=== PATIENT | male | born 1980 | race Caucasian/White ===

== ENCOUNTER → 2021-10-16 | Outpatient (REF) | payer BC, OTHER | LOC: M SFHCRHEU 10:35 | PROVIDERS: ATTEND Internal Medicine | DX: M25.50 Pain in unspecified joint (principal); M79.10 Myalgia, unspecified site ==

== ENCOUNTER → 2021-10-16 | Outpatient (CLI) | payer BC, OTHER | LOC: M WUC 11:18 | PROVIDERS: ATTEND Internal Medicine | DX: M75.81 Other shoulder lesions, right shoulder (principal) ==

== ENCOUNTER → 2022-01-24 | Outpatient (REF) | payer OTHER ==
[2022-01-24 13:21] LABS: CALCIUM LEVEL 10.2 MG/DL (8.5-10.1); MAGNESIUM LEVEL 2.4 MG/DL (1.8-2.4)
[2022-01-24 13:40] LABS: TOTAL 25(OH) VITAMIN D 28.7 NG/ML (30.0-100.0)
[2022-01-24 13:42] LABS: PTH INTACT 50.3 PG/ML (18.5-88.0)
== END ==
LOC: M SFHCRHEU 11:29
PROVIDERS: ATTEND Internal Medicine
DX: M75.31 Calcific tendinitis of right shoulder (principal); E55.9 Vitamin D deficiency, unspecified

== ENCOUNTER → 2022-12-26 | Outpatient (CLI) | payer BC, OTHER | LOC: M WUC 14:21 | PROVIDERS: ATTEND Student in an Organized Health Care Education/Training Program | DX: M25.572 Pain in left ankle and joints of left foot (principal) ==

== ENCOUNTER → 2023-04-24 | Outpatient (CLI) | payer BC, OTHER | LOC: M CARPUL 12:37 | PROVIDERS: ATTEND Internal Medicine Hematology & Oncology | DX: Z13.6 Encounter for screening for cardiovascular disorders (principal); C81.10 Nodular sclerosis Hodgkin lymphoma, unspecified site; I51.7 Cardiomegaly; I34.0 Nonrheumatic mitral (valve) insufficiency ==

== ENCOUNTER → 2024-04-06 | Outpatient (CLI) | payer BC, OTHER | LOC: M WUC 10:51 | PROVIDERS: ATTEND Physician Assistant | DX: C81.10 Nodular sclerosis Hodgkin lymphoma, unspecified site (principal) ==

== ENCOUNTER 2024-07-02 08:18 | Emergency (ER) | payer BC, OTHER ==
[~2024-07-02] VITALS: Ht 193 cm; Wt 118.1 kg
[2024-07-02] MEDS ORDERED: VENL150C43 (08:26)
[2024-07-02] MEDS ORDERED: LISI20TA33 (08:26)
[2024-07-02] MEDS ORDERED: LOVA20TA2 (08:26)
[2024-07-02] MEDS ORDERED: KETOROLAC 60MG 2ML VIAL IM ONE (08:45)
[2024-07-02] MEDS ORDERED: ISOVUE-370 76% 100ML VIAL As Ordered ONE (09:09)
[2024-07-02] MEDS: KETOROLAC 30 MG/ML 1ML VIAL IV ONE (09:24)
[2024-07-02] MEDS: ONDANSETRON 4MG 2ML VIAL IV ONE (09:28)
[2024-07-02 09:38] LABS: BASO % 0.3 % (0.0-1.0); EOS % 0.1 % (0.0-3.0); HEMATOCRIT 40.8 % (42.0-52.0); HEMOGLOBIN 13.2 g/dl (13.5-17.5); LYMPH # 1.1 10^3/uL (1.5-5.0); LYMPH % 12.3 % (24.0-44.0); MEAN CORPUSCULAR HEMOGLOBIN 27.7 pg (27.0-33.0); MEAN CORPUSCULAR HGB CONC 32.4 g/dl (32.0-36.5); MEAN CORPUSCULAR VOLUME 85.5 fl (80.0-96.0); MONO # 0.2 10^3/uL (0.0-0.8); NEUTROPHILS # 7.7 10^3/uL (1.5-8.5); PLATELET COUNT, AUTOMATED 328 10^3/uL (150-450); RED BLOOD COUNT 4.77 10^6/uL (4.30-6.10)
[2024-07-02 09:51] LABS: ERYTHROCYTE SEDIMENTATION RATE 39 mm/hr (0-15); LIPASE 46 U/L (12-53)
[2024-07-02 09:52] LABS: C REACTIVE PROTEIN QUANTITATIV < 0.50 MG/DL (<1.0)
[2024-07-02 09:53] LABS: ALBUMIN 3.8 G/DL (3.2-5.2); ALKALINE PHOSPHATASE 85 U/L (40-129); ALT/SGPT 65 U/L (7.0-40); AST/SGOT 31 U/L (<34); BILIRUBIN,TOTAL 0.2 MG/DL (0.3-1.2); BLOOD UREA NITROGEN 17 MG/DL (9-23); CALCIUM LEVEL 9.8 MG/DL (8.5-10.1); CARBON DIOXIDE LEVEL 25 MMOL/L (20-31); CHLORIDE LEVEL 108 MMOL/L (98-107); CREATININE FOR GFR 0.87 MG/DL (0.70-1.30); GLOMERULAR FILTRATION RATE > 60.0 (>60); GLUCOSE, FASTING 144 MG/DL (60-100); POTASSIUM SERUM 4.5 MMOL/L (3.5-5.1); SODIUM LEVEL 140 MMOL/L (136-145); TOTAL PROTEIN 7.7 G/DL (5.7-8.2)
[2024-07-02] MEDS: MORPHINE 4 MG/ML 1ML VIAL IV ONE (10:06)
[2024-07-02] MEDS ORDERED: POLYETHYLENE GLYCOL (MIRALAX) 238GM BOTTLE PO ONE (10:50)
[2024-07-02] MEDS ORDERED: MIRA3350 PO (11:39)
[2024-07-02] MEDS ORDERED: CARA1TAB6 PO (11:39)
[2024-07-02] MEDS ORDERED: PROT1TAB2 PO (11:39)
[2024-07-02] MEDS: PANTOPRAZOLE 40MG VIAL IV ONE (11:41)
[2024-07-02] MEDS: SUCRALFATE 1 GM TAB PO ONE (11:41)
[2024-07-02] MEDS ORDERED: IBUP80TA PO (11:54)
[2024-07-02 12:40] VITALS: BP 146/86; TEMP 96.8; O2SAT 98
[2024-07-03] MEDS ORDERED: MIRALAX *UNIT DOSE* 17GM PACKET PO SCH (09:00)
[2025-07-02] MEDS ORDERED: MIRALAX *UNIT DOSE* 17GM PACKET PO SCH (09:00)
== END 2024-07-02 12:43 | disposition home or self-care (01) ==
LOC: M ED 08:18
DX: K59.00 Constipation, unspecified (principal); N20.0 Calculus of kidney; K57.30 Diverticulosis of large intestine without perforation or abscess without bleeding; R16.1 Splenomegaly, not elsewhere classified; J98.11 Atelectasis; K44.9 Diaphragmatic hernia without obstruction or gangrene; C81.9A Hodgkin lymphoma, unspecified, in remission; Z79.811 Long term (current) use of aromatase inhibitors; Z79.899 Other long term (current) drug therapy; Z79.1 Long term (current) use of non-steroidal anti-inflammatories (NSAID)
CPT/HCPCS: 74177; 80047; 80053; 83605; 83690; 85025; 85652; 86140; 96374; 96375; 99284; J1885; J2405; J2470; Q9967

== ENCOUNTER → 2024-12-02 | Outpatient (CLI) | payer BC ==
[~2024-12-02] MED LIST: CARA1TAB6 PO; IBUP80TA PO; LISI20TA33; LOVA20TA2; MIRA3350 PO; PROT1TAB2 PO; VENL150C43
[2024-12-02 13:42] LABS: ALBUMIN 4.2 G/DL (3.2-5.2); BILIRUBIN,TOTAL 0.4 MG/DL (0.3-1.2); CALCIUM LEVEL 9.6 MG/DL (8.5-10.1); CHOLESTEROL RISK RATIO 4.42 (<5); CREATININE FOR GFR 1.12 MG/DL (0.70-1.30); GLOMERULAR FILTRATION RATE 83.1 (>60); LDL CHOLESTEROL 112.2 MG/DL (<100); POTASSIUM SERUM 4.4 MMOL/L (3.5-5.1); TOTAL PROTEIN 7.4 G/DL (5.7-8.2)
== END ==
LOC: M WUC 10:28
PROVIDERS: ATTEND Family Medicine
DX: Z00.00 Encounter for general adult medical examination without abnormal findings (principal)

== ENCOUNTER 2025-06-18 10:37 | Emergency (ER) | payer BC ==
[~2025-06-18] VITALS: Ht 193 cm; Wt 118.4 kg
[2025-06-18] MEDS ORDERED: ISOVUE-370 76% 100 ML VIAL As Ordered ONE (11:22)
[2025-06-18] MEDS: NS (Normal Saline) 0.9% 1,000 ML IV ONE (11:40)
[2025-06-18] MEDS: FAMOTIDINE 20 MG/2 ML VIAL IVP ONE (11:41)
[2025-06-18] MEDS: ONDANSETRON 4MG/2ML VIAL IV ONE (11:41)
[2025-06-18 11:42] LABS: BASO # 0.0 10^3/uL (0.0-0.2); BASO % 0.3 % (0.0-1.0); EOS # 0.1 10^3/uL (0.0-0.5); EOS % 1.4 % (0.0-3.0); LYMPH # 1.1 10^3/uL (1.5-5.0); LYMPH % 15.1 % (24.0-44.0); MONO # 0.5 10^3/uL (0.0-0.8); MONO % 6.8 % (2.0-8.0); NEUTROPHILS # 5.3 10^3/uL (1.5-8.5); NEUTROPHILS % 76.3 % (36.0-66.0); PLATELET COUNT, AUTOMATED 259 10^3/uL (150-450)
[2025-06-18] MEDS: KETOROLAC 30 MG/ML 1 ML VIAL IV ONE (11:46)
[2025-06-18 12:12] LABS: ALT/SGPT 622 U/L (7.0-40); AST/SGOT 194 U/L (<34); CALCIUM LEVEL 9.5 MG/DL (8.5-10.1); CARBON DIOXIDE LEVEL 25 MMOL/L (20-31); CHLORIDE LEVEL 103 MMOL/L (98-107); CK-MB VALUE MASS 1.9 NG/ML (<3.6); CREATININE FOR GFR 0.86 MG/DL (0.70-1.30); GLOMERULAR FILTRATION RATE > 90.0 (>60); POTASSIUM SERUM 3.7 MMOL/L (3.5-5.1); SODIUM LEVEL 139 MMOL/L (136-145)
[2025-06-18 12:16] LABS: CPK CREATINE PHOSPHOKINASE 195 U/L (46-171); MB/CK RELATIVE INDEX 0.97 (< OR =4)
[2025-06-18 12:50] LABS: KETONE, URINE MANUAL REFLEX OBSCURED mg/dL (NEGATIVE); PROTEIN, URINE MANUAL REFLEX NEGATIVE (NEGATIVE); SP GRAVITY,URINE MANUAL REFLEX 1.010 (1.002-1.035)
[2025-06-18 12:51] LABS: NITRITE, URINE MANUAL RFX NEGATIVE (NEGATIVE); UROBILINOGEN, UA MANUAL REFLEX OBSCURED mg/dl (NORMAL)
[2025-06-18 12:57] LABS: HYALINE CAST, URINE RFX NONE SEEN /lpf (0-1); RBC, URINE MAN REFLEX 0-1 /hpf (0-3); SQUAMOUS EPITHELIAL URINE RFX NONE SEEN /hpf (SMALL AMT); WBC, URINE MAN RFX 0-1 /hpf (0-3)
[2025-06-18 12:58] LABS: MICROSCOPIC EXAM RFX PERFORMED
[2025-06-18 21:12] VITALS: BP 157/84; TEMP 98.4; O2SAT 98
== END 2025-06-18 21:18 | disposition short-term general hospital (02) ==
LOC: M ED 12:24
DX: K80.12 Calculus of gallbladder with acute and chronic cholecystitis without obstruction (principal); K83.8 Other specified diseases of biliary tract; F32.A Depression, unspecified; F41.9 Anxiety disorder, unspecified; I10 Essential (primary) hypertension; C85.90 Non-Hodgkin lymphoma, unspecified, unspecified site; Z79.1 Long term (current) use of non-steroidal anti-inflammatories (NSAID); Z79.899 Other long term (current) drug therapy
CPT/HCPCS: 71046; 74177; 74181; 80047; 80048; 80076; 81000; 81015; 82550; 82553; 83605; 83690; 84484; 85025; 93005; 96361; 96374; 96375; 99285; J1308; J1885; J2405; Q9967